=== PATIENT | female | born 1955 | race Caucasian/White ===

== ENCOUNTER → 2020-04-01 | Day surgery (SDC) | payer OTHER, MEDICARE ==
[~2020-04-01] MED LIST: ACETAMINOPHEN/CODEINE 300MG - 30MG TAB ONE; CEFAZOLIN SOD 1 GM/NS 50ML 100 ML IV ONE; FENTANYL CITRATE/PF 100MCG/2 ML INJ ONE; LIDOCAINE HCL 2% LOCAL INJ 5 ML SDV VIAL INJ ONE; LIPITOR20 MG PO; MIDAZOLAM HCL 2 MG/2 ML VIAL ONE; PROPOFOL IV EMULSION 10 MG/ML 20 ML VIAL ONE; SAVAYSA60 MG PO; TRAZODONE HCL50 MG PO; VERAPAMIL ER120 MG PO; Z.0.LISINOPRIL40 MG PO; Z.0.PROZAC40 MG PO; Z.1.MECLIZINE HCL25 PO
[2020-04-01 12:30] VITALS: BP 151/89
--- NOTE | 2020-04-04 18:43 | Operative Report ---
DATE OF PROCEDURE: SURGEON: Davonte Elise MD PREOPERATIVE DIAGNOSIS: Comminuted left proximal and left humeral shaft fracture. POSTOPERATIVE DIAGNOSIS: Subacute left proximal and left comminuted humeral shaft fracture OPERATIONS AND PROCEDURE PERFORMED: The patient underwent an examination under anesthesia and fluoroscopic evaluation of the left humerus fracture with application of a multi-sided splint. CARDIAC CATH TECHNOLOGIST: None. ANESTHESIA: IV sedation and monitored anesthesia care. BLOOD LOSS: None. COMPLICATIONS: None. OPERATIVE INDICATIONS: Ms. Crawford is a 64-year-old female, who initially presented to the office two weeks following a fall that resulted in a fracture of the humeral neck as well as comminuted fracture of the shaft of the humerus. The patient was evaluated in clinic and the patient opted for surgical stabilization of her injury. She was released from the office to obtain medical and cardiac clearance and unfortunately this process took several weeks. On the day of surgery, she was over a month out from her original injury. On the day of surgery, the patient was consented for a fluoroscopic evaluation of her fracture versus open reduction and internal fixation of her fracture. BRIEF DESCRIPTION OF THE PATIENT'S SURGICAL PROCEDURE: Ms. Crawford was taken to the operating room and placed in supine position on the operating table. Following induction of IV sedation and monitored anesthesia care, the patient's left upper extremity was examined under anesthesia. She was found to have swelling in the left upper arm. There was stiffness at the elbow as well as at the wrist and hand. The elbow, wrist and hand were gently manipulated under anesthesia. Fluoroscopic evaluation of the patient's fracture demonstrated no further displacement of the shaft in relation to the head. The comminuted segment of the humeral shaft fracture demonstrated mild displacement, but copious callus formation proximally throughout the segment of the comminution and distally. There was approximately 23 degrees of angulation in the AP plane. Under live fluoroscopic evaluation, the arm was manipulated under anesthesia and found to move as a single segment. There was no motion at the level of the comminuted segment. Decision was therefore made intraoperatively to not proceed with open reduction and internal fixation given the duration of time that had passed and the degree of healing that had taken place since her original injury. The patient was placed in a well-padded multi-sided splint. She was awakened and taken to the postanesthesia care unit in stable condition. MD MEGA Gregory/LISSY /[id number]
== END | disposition home or self-care (01) ==
LOC: OR 08:52
PROVIDERS: ATTEND Specialist
DX: S42.232A 3-part fracture of surgical neck of left humerus, initial encounter for closed fracture (principal); S42.352A Displaced comminuted fracture of shaft of humerus, left arm, initial encounter for closed fracture; F41.9 Anxiety disorder, unspecified; I10 Essential (primary) hypertension; I48.91 Unspecified atrial fibrillation; F17.210 Nicotine dependence, cigarettes, uncomplicated; W01.0XXA Fall on same level from slipping, tripping and stumbling without subsequent striking against object, initial encounter; Y92.89 Other specified places as the place of occurrence of the external cause; Z88.6 Allergy status to analgesic agent; Z01.812 Encounter for preprocedural laboratory examination; Z11.59 Encounter for screening for other viral diseases; Z68.41 Body mass index [BMI] 40.0-44.9, adult
CPT/HCPCS: 24500; 23605; J0690; J2001; J2250; J2704; J3010; U0002; 76000

== ENCOUNTER 2020-07-21 07:50 | Outpatient (RCR) | payer MEDICARE, OTHER ==
[~2020-07-21 07:50] MED LIST changes: -ACETAMINOPHEN/CODEINE 300MG - 30MG TAB ONE; -CEFAZOLIN SOD 1 GM/NS 50ML 100 ML IV ONE; -FENTANYL CITRATE/PF 100MCG/2 ML INJ ONE; -LIDOCAINE HCL 2% LOCAL INJ 5 ML SDV VIAL INJ ONE; -MIDAZOLAM HCL 2 MG/2 ML VIAL ONE; -PROPOFOL IV EMULSION 10 MG/ML 20 ML VIAL ONE
== END 2020-07-30 ==
LOC: OT 07:50
PROVIDERS: ATTEND Specialist
DX: S42.302A Unspecified fracture of shaft of humerus, left arm, initial encounter for closed fracture (principal); M24.611 Ankylosis, right shoulder; M24.621 Ankylosis, right elbow; M24.631 Ankylosis, right wrist; M24.641 Ankylosis, right hand

== ENCOUNTER 2020-08-28 07:57 | Outpatient (RCR) | payer OTHER | END 2020-08-30 | LOC: OT 07:57 | PROVIDERS: ATTEND Specialist | DX: S42.302A Unspecified fracture of shaft of humerus, left arm, initial encounter for closed fracture (principal); M24.612 Ankylosis, left shoulder ==

== ENCOUNTER 2020-09-25 15:00 | Outpatient (RCR) | payer OTHER | END 2020-09-27 | LOC: OT 15:00 | PROVIDERS: ATTEND Specialist | DX: S42.302A Unspecified fracture of shaft of humerus, left arm, initial encounter for closed fracture (principal); M24.612 Ankylosis, left shoulder ==